=== PATIENT | female | born 1995 | race Two or more races ===

== ENCOUNTER 2017-12-18 18:45 | Inpatient (IN) | payer SELFPAY ==
[~2017-12-18] VITALS: Ht 162.6 cm; Wt 67.3 kg
[2017-12-18] MEDS ORDERED: ACETAMINOPHEN 325 MG TAB PO PRN (19:15)
[2017-12-18] MEDS ORDERED: ACETAMINOPHEN 650 MG SUPP PR PRN (19:15)
[2017-12-18] MEDS ORDERED: HYDRALAZINE HCL 20 MG/ML VIAL IV PRN (19:15)
[2017-12-18 20:15] VITALS: BP 122/64
[2017-12-18] MEDS: DEXTROSE 5%/0.45% SOD CHL 1,000 ML IV SCH (20:39)
[2017-12-18] MEDS: PIPER-TAZ 3.375 GM 50 ML IV SCH (20:59)
[2017-12-18 22:05] VITALS: BP 122/64
[2017-12-18 23:50] VITALS: BP 122/64
[2017-12-18 23:51] VITALS: BP 129/59
[2017-12-19] VITALS (8 sets, daily range): BP systolic 114–132; BP diastolic 56–75
[2017-12-19] MEDS: HYDROMORPHONE 1MG/1ML INJ IV PRN ×4 (01:00→20:15)
[2017-12-19] MEDS: ONDANSETRON HCL INJ 2 MG/ML VIAL IV PRN ×2 (01:45→20:15)
[2017-12-19] MEDS: PIPER-TAZ 3.375 GM 50 ML IV SCH ×3 (04:00→19:52)
[2017-12-19 06:41] LABS: BASOPHILS # (AUTO) 0.1 (0.0-0.1); BASOPHILS % 0.5 % (0.0-1.0); EOSINOPHILS # (AUTO) 0.4 (0.0-0.4); EOSINOPHILS % 3.5 % (0.0-6.0); HEMATOCRIT 40.8 % (34.2-44.1); HEMOGLOBIN 13.6 g/dL (12.0-16.0); LYMPHOCYTES # (AUTO) 3.1 (1.0-3.2); LYMPHOCYTES % 28.8 % (18.0-39.1); MEAN CORPUSCULAR HEMOGLOBIN 29.3 pg (28-32); MEAN CORPUSCULAR HGB CONC 33.3 g/dL (31-35); MEAN CORPUSCULAR VOLUME 87.9 fL (81-99); MONOCYTES # (AUTO) 0.8 (0.2-0.8); MONOCYTES % 7.4 % (4.4-11.3); NEUTROPHILS # (AUTO) 6.4 (2.1-6.9); NEUTROPHILS % 59.1 % (38.7-80.0); PLATELET COUNT 239 x10e3/uL (140-360); RED BLOOD COUNT 4.64 x10e6/uL (3.6-5.1); RED CELL DISTRIBUTION WIDTH 12.7 % (11.7-14.4)
[2017-12-19 07:15] LABS: ALANINE AMINOTRANSFERASE 15 IU/L (0-55); ALBUMIN 3.6 g/dL (3.5-5.0); ALBUMIN/GLOBULIN RATIO 1.2 (0.8-2.0); ALKALINE PHOSPHATASE 46 IU/L (40-150); ANION GAP 10.9 mmol/L (8-16); BLOOD UREA NITROGEN 12 mg/dL (7-26); BUN/CREATININE RATIO 16 (6-25); CALCIUM 8.4 mg/dL (8.4-10.2); CARBON DIOXIDE 26 mmol/L (22-29); CHLORIDE 109 mmol/L (98-107); CREATININE, SERUM 0.75 mg/dL (0.57-1.11); EST GLOMERULAR FILTRATION RATE > 60 ML/MIN (60-); GLUCOSE 99 mg/dL (74-118); POTASSIUM 3.9 mmol/L (3.5-5.1); SODIUM 142 mmol/L (136-145)
[2017-12-19] MEDS: DEXTROSE 5%/0.45% SOD CHL 1,000 ML IV SCH (07:31)
[2017-12-19 10:31] LABS: BILIRUBIN,URINE NEGATIVE (NEGATIVE); KETONES,URINE NEGATIVE (NEGATIVE); LEUKOCYTE ESTERASE ,URINE NEGATIVE (NEGATIVE); NITRITE,URINE NEGATIVE (NEGATIVE); PROTEIN,URINE DIPSTICK NEGATIVE (NEGATIVE); URINE UROBILINOGEN 0.2 mg/dL (0.2 - 1)
[2017-12-19 10:32] LABS: CLARITY,URINE SL CLOUDY (CLEAR); COLOR,URINE YELLOW (YELLOW)
[2017-12-19 10:45] LABS: BACTERIA,URINE FEW /HPF; EPITHELIAL CELLS,URINE FEW /LPF; MUCUS,URINE MODERATE (RARE); RBC,URINE 0-5 /HPF (0-5); WBC,URINE (MAN) 21-50 /HPF (0-5)
[2017-12-19] MEDS ORDERED: BUPIVACAINE 0.25%/EPI 30ML SDV INJ ONE (12:40)
--- NOTE | 2017-12-19 14:54 | Consultation ---
DATE OF CONSULTATION: December 18, 2017 CHIEF COMPLAINT: Abdominal pain. HISTORY OF PRESENT ILLNESS: The patient is 22-year-old female with 4-day history of pain in the lower abdomen on the right side with nausea. No vomiting. No fever, chills or diarrhea. The patient has had no prior episode. REVIEW OF SYSTEMS: No chest pain or shortness of breath. PAST MEDICAL HISTORY: Negative for chronic medical illness or surgery. ALLERGIES: THE PATIENT HAS NO DRUG ALLERGIES. SOCIAL HABITS: She does not smoke or drink alcohol. PHYSICAL EXAMINATION VITALS: Stable. Afebrile. GENERAL: Patient is awake, alert, in mild discomfort. HEENT: Sclerae are anicteric. NECK: Supple. LUNGS: Clear. HEART: Regular rate and rhythm. No murmur. ABDOMEN: Soft with some mild guarding tenderness in the right lower quadrant without rebound. EXTREMITIES: Without cyanosis or edema. LABS: White cell count 10. CT scan of the abdomen showed inflamed appendix. No perforation. ASSESSMENT: Acute appendicitis. PLAN: Laparoscopic appendectomy. Attendant risks discussed. Job#: [id number]
--- NOTE | 2017-12-19 15:40 | Operative Report ---
DATE OF PROCEDURE: December 19, 2017 PREOPERATIVE DIAGNOSIS: Appendicitis. POSTOPERATIVE DIAGNOSIS: Appendicitis. OPERATIVE PROCEDURE: Laparoscopic appendectomy. ANESTHESIA: General endotracheal. INDICATIONS: The patient is a 22-year-old female with a 4-day history of pain in the right lower quadrant. CT scan showed early appendicitis. Patient consented for laparoscopic appendectomy. Attendant risks discussed. PROCEDURE FINDINGS: Mildly inflamed appendix with adhesions to the retroperitoneum. DESCRIPTION OF PROCEDURE: The patient was brought to the OR and intubated. Abdomen was prepped with alcohol and draped in a sterile fashion. Infraumbilical incision was made and a 12-mm port inserted. Insufflation began. Under direct vision, other port sites placed in the right upper quadrant and suprapubic. The appendix was noted to be long and tortuous with the mid body adhesed to the retroperitoneum causing a bend in the proximal appendix with distal dilatations suggesting partial obstruction. We proceeded to mobilize the appendix by dividing the adhesions and straighten out the appendix. The neck was then transected with an Endo GRAHAM stapler blue load. The vascular load was used for the mesentery. Hemostasis was achieved at the staple line. The appendix was placed in an Endo pouch and retrieved out the peritoneal cavity. The operative field was irrigated. Hemostasis was achieved. All ports were then removed under direct vision. The fascia was closed with interrupted #0 Vicryl. Skin was closed with subcuticular stitch. Patient was extubated and transported to the recovery room. Estimated blood loss was 5 mL. Job#: [id number]
[2017-12-19] MEDS ORDERED: GLYCOPYRROLATE INJ 1MG/ 5 ML SYR ONE (17:20)
[2017-12-19] MEDS ORDERED: PROPOFOL IV EMULSION 10 MG/ML 20 ML VIAL ONE (17:20)
[2017-12-19] MEDS ORDERED: DEXAMETHASONE SOD PHOS INJ 4 MG/ML VIAL ONE (17:20)
[2017-12-19] MEDS ORDERED: CEFAZOLIN SOD 1 GM VIAL ONE (17:20)
[2017-12-19] MEDS ORDERED: ROCURONIUM BROMIDE 10 MG/ML 5ML VIAL ONE (17:20)
[2017-12-19] MEDS ORDERED: NEOSTIGMINE 5 MG/5ML SYR ONE (17:20)
[2017-12-19] MEDS ORDERED: ONDANSETRON HCL INJ 2 MG/ML VIAL ONE (17:20)
[2017-12-19] MEDS ORDERED: KETOROLAC TROMETHAMINE 30 MG/ML VIAL ONE (17:20)
[2017-12-19] MEDS ORDERED: LIDOCAINE HCL 2% LOCAL INJ 5 ML SDV VIAL INJ ONE (17:20)
[2017-12-19] MEDS ORDERED: SEVOFLURANE INHAL SOLN 250 ML PEN BTL ONE (17:20)
[2017-12-19] MEDS ORDERED: FENTANYL CITRATE/PF 100MCG/2 ML INJ ONE (17:26)
[2017-12-19] MEDS ORDERED: MIDAZOLAM HCL 2 MG/2 ML VIAL ONE (17:26)
[2017-12-20] MEDS: DEXTROSE 5%/0.45% SOD CHL 1,000 ML IV SCH ×2 (00:13→12:16)
[2017-12-20] MEDS: HYDROMORPHONE 1MG/1ML INJ IV PRN ×4 (00:13→17:33)
[2017-12-20] MEDS: PIPER-TAZ 3.375 GM 50 ML IV SCH (04:28)
[2017-12-20 04:29] VITALS: BP 119/56
[2017-12-20 06:40] LABS: BASOPHILS % 0.2 % (0.0-1.0); EOSINOPHILS % 0.3 % (0.0-6.0); HEMATOCRIT 36.6 % (34.2-44.1); HEMOGLOBIN 12.4 g/dL (12.0-16.0); LYMPHOCYTES # (AUTO) 2.3 (1.0-3.2); LYMPHOCYTES % 19.1 % (18.0-39.1); MEAN CORPUSCULAR HEMOGLOBIN 29.8 pg (28-32); MEAN CORPUSCULAR HGB CONC 33.9 g/dL (31-35); MONOCYTES # (AUTO) 0.9 (0.2-0.8); MONOCYTES % 7.3 % (4.4-11.3); NEUTROPHILS # (AUTO) 8.9 (2.1-6.9); NEUTROPHILS % 72.7 % (38.7-80.0); PLATELET COUNT 210 x10e3/uL (140-360); RED BLOOD COUNT 4.16 x10e6/uL (3.6-5.1); RED CELL DISTRIBUTION WIDTH 12.6 % (11.7-14.4)
[2017-12-20 07:06] LABS: ANION GAP 7.8 mmol/L (8-16); BLOOD UREA NITROGEN 6 mg/dL (7-26); BUN/CREATININE RATIO 9 (6-25); CALCIUM 8.6 mg/dL (8.4-10.2); CARBON DIOXIDE 26 mmol/L (22-29); CHLORIDE 106 mmol/L (98-107); CREATININE, SERUM 0.68 mg/dL (0.57-1.11); EST GLOMERULAR FILTRATION RATE > 60 ML/MIN (60-); GLUCOSE 136 mg/dL (74-118); MAGNESIUM 1.5 MG/DL (1.3-2.1); POTASSIUM 3.8 mmol/L (3.5-5.1); SODIUM 136 mmol/L (136-145)
[2017-12-20 08:18] VITALS: BP 113/56
--- NOTE | 2017-12-20 10:35 | Diagnostic Imaging Report ---
PROCEDURE: CHEST SINGLE (PORTABLE) COMPARISON: None. INDICATIONS: PNEUMONIA FINDINGS: LUNGS: Mild perivascular haziness likely secondary to pulmonary congestion. No focal consolidation PLEURA: No effusions or pneumothorax. HEART \T\ MEDIASTINUM: The heart is within normal size-limits. BONES \T\ SOFT TISSUES: No acute findings. CONCLUSION: Mild pulmonary vascular congestion. Flakito Sebastian D.O. Dictated by: Flakito Sebastian D.O. on 12/20/2017 at 10:34 Electronically approved by: Flakito Sebastian D.O. on 12/20/2017 at 10:34
[2017-12-20 11:51] VITALS: BP 113/59
[2017-12-20] MEDS ORDERED: METRONIDAZOLE 500MG/NS 100ML 100 ML IV SCH (14:00)
[2017-12-20] MEDS: CEFAZOLIN SOD 2 GM in WATER STERILE 10ML VIAL 10 ML IV SCH ×2 (14:00→17:22)
[2017-12-20 16:00] VITALS: BP 129/61
[2017-12-20] MEDS ORDERED: CEFAZOLIN SOD 1 GM VIAL ONE (16:27)
[2017-12-20 20:00] VITALS: BP 146/65
== END 2017-12-20 20:22 | disposition home or self-care (01) | DRG 343 ==
LOC: MED/SURG 18:45
PROVIDERS: ADMIT Internal Medicine; ATTEND Internal Medicine
PROC: 0DTJ4ZZ Resection of Appendix, Percutaneous Endoscopic Approach (ICD-10-PCS; principal; 2017-12-19 14:05)
DX: K35.80 Unspecified acute appendicitis (principal); D72.829 Elevated white blood cell count, unspecified
CPT/HCPCS: 36415; 71045; 80048; 80053; 81001; 81025; 83735; 85025; 87040; 87086; 88304; J0690; J1100; J1170; J1885; J2001; J2250; J2405; J2543

== ENCOUNTER 2019-09-21 19:42 | Emergency (ER) | payer SELFPAY ==
[~2019-09-21] VITALS: Ht 162.6 cm; Wt 67.1 kg
[2019-09-21 21:28] LABS: BILIRUBIN,URINE NEGATIVE (NEGATIVE); CLARITY,URINE SL CLOUDY (CLEAR); COLOR,URINE YELLOW (YELLOW); KETONES,URINE NEGATIVE (NEGATIVE); LEUKOCYTE ESTERASE ,URINE NEGATIVE (NEGATIVE); NITRITE,URINE NEGATIVE (NEGATIVE); PROTEIN,URINE DIPSTICK NEGATIVE (NEGATIVE); URINE UROBILINOGEN 0.2 mg/dL (0.2 - 1)
[2019-09-21 21:29] LABS: PREGNANCY TEST, URINE NEGATIVE (NEGATIVE)
[2019-09-21 21:42] LABS: BACTERIA,URINE MODERATE /HPF; EPITHELIAL CELLS,URINE MANY /LPF; TRANSITIONAL EPI CELLS,URINE MODERATE; WBC,URINE (MAN) 0-5 /HPF (0-5)
[2019-09-21 23:12] VITALS: BP 138/70
--- OUTSIDE RECORDS SUMMARY | 2019-09-25 12:59 | XMS REPORT ---
Author [facility] Address Unknown Phone Unavailable Care Team Providers Care Driver Wheelchair Name Role Phone TONI RENE Unavailable Unavailable Payers Payer Name Policy Type Policy Number Effective Date Expiration Date Problems This patient has no known problems. Allergies, Adverse Reactions, Alerts Allergy Name Allergy Type Status Severity Reaction(s) Onset Date Inactive Date Treating Clinician Comments No Known Allergies DA Active U 2014-12-06 00:00:00 Medications This patient has no known medications. Results Test Description Test Time Test Comments Text Results Atomic Results Result Comments CHEST SINGLE (PORTABLE) [place] [id number] Patient Name: HUMBERTO WALKER MR #: [id number] : 1995 Age/Sex: 22/F Req #: [id number] Adm Physician: RENE MUÑOZ MD Ordered by: Lena Llanos [employer] Report #: [id number] Location: MED/SURG Room/Bed: [facility] Procedure: [id number] DX/CHEST SINGLE (PORTABLE) Exam Date: 03/16/18 Exam Time: 1020 REPORT STATUS: Signed PROCEDURE: CHEST SINGLE (PORTABLE) COMPARISON: None. INDICATIONS: PNEUMONIA FINDINGS: LUNGS: Mild perivascular haziness likely secondary to pulmonary congestion. No focal consolidation PLEURA: No effusions or pneumothorax. HEART T MEDIASTINUM: The heart is within normal size-limits. BONES T SOFT TISSUES: No acute findings. CONCLUSION: Mild pulmonary vascular congestion. Lou Sebastian D.O. Dictated by: Lou Sebastian D.O. on 12/20/2017 at 10:34 Electronically approved by: Lou Sebastian D.O. on 12/20/2017 at 10:34 Dictated By: LOU SEBASTIAN DO 1034 Transcribed By: PUNEET on 12/20/17 1034 COPY TO: LENA LLANOS NP
== END 2019-09-21 23:17 | disposition home or self-care (01) ==
LOC: ER 19:42
DX: M54.41 Lumbago with sciatica, right side (principal); F41.9 Anxiety disorder, unspecified
CPT/HCPCS: 81001; 81025; 99283